=== PATIENT | male | born 1950 | race Caucasian/White ===

== ENCOUNTER 2021-11-30 12:18 | Emergency (ER) | payer OTHER ==
[~2021-11-30] VITALS: Ht 182.9 cm; Wt 115.7 kg
[2021-11-30] MEDS ORDERED: METFORMIN HCL500 M4 (12:27)
[2021-11-30] MEDS ORDERED: ZESTRIL10 M1 (12:30)
[2021-11-30] MEDS ORDERED: BACLOFEN10 MG (12:30)
[2021-11-30] MEDS ORDERED: HYSINGLA ER20 MG (12:30)
== END 2021-11-30 19:32 | disposition home or self-care (01) ==
LOC: ER 12:18
DX: R42 Dizziness and giddiness (principal); E11.9 Type 2 diabetes mellitus without complications; Z79.84 Long term (current) use of oral hypoglycemic drugs; Z88.8 Allergy status to other drugs, medicaments and biological substances; I10 Essential (primary) hypertension